=== PATIENT | female | born 1985 | race Caucasian/White ===

== ENCOUNTER 2016-11-23 09:06 | Day surgery (SDC) | payer BC ==
[~2016-11-23 09:06] MED LIST: Buffered Lidocaine 0.9% SYRIN* 5 ML/SYR SYRINGE INTRADERM ONE; Dexamethasone IV* 4 MG/ML 1 ML (4 MG) IV SLOW PU ONE; Famotidine IV* 10 MG/ML 2 ML (20 mg) IV ONE
[2016-11-23] MEDS ORDERED: Dexamethasone IV* 4 MG/ML 1 ML (4 MG) ONE (09:08)
[2016-11-23] MEDS ORDERED: Buffered Lidocaine 0.9% SYRIN* 5 ML/SYR SYRINGE ONE (09:08)
[2016-11-23] MEDS ORDERED: Famotidine IV* 10 MG/ML 2 ML (20 mg) ONE (09:08)
[2016-11-23] MEDS ORDERED: Bacitracin OINTMENT* 1 TUBE ONE (10:47)
[2016-11-23] MEDS ORDERED: Lidocaine 1% MPF wEPI 200,000* 30 ML SDV ONE (10:47)
[2016-11-23] MEDS ORDERED: Oxymetazoline 0.05% NASAL SPR* 15 ML BTL ONE (10:47)
[2016-11-23] MEDS ORDERED: Lidocaine 4% TOPICAL* 50 ML TOP.SOLN ONE (10:47)
[2016-11-23] MEDS ORDERED: oxyCODONE/Acetamin 5/325 MG* TAB PO PRN (10:55)
[2016-11-23] MEDS ORDERED: PROCHLORPERAZINE INJ 5 MG/ML 2 ML VIAL IV PRN (10:55)
[2016-11-23] MEDS ORDERED: fentaNYL* 50 MCG/ML 2 ML VIAL (100 MCG VIAL) IV PRN (10:55)
[2016-11-23] MEDS ORDERED: HYDROcodone/ACETAMIN 5-325 MG* 1 TAB PO PRN (10:55)
[2016-11-23] MEDS ORDERED: Midazolam* 1 MG/ML 5 ML VIAL (5 MG) ONE (10:58)
[2016-11-23] MEDS ORDERED: fentaNYL* 50 MCG/ML 2 ML VIAL (100 MCG VIAL) ONE (10:58)
[2016-11-23] MEDS ORDERED: Mivacurium Chloride* 20 MG/10 ML VIAL IV ONE (10:59)
[2016-11-23] MEDS ORDERED: Propofol* 10 MG/ML 20 ML BTL IV PUSH ONE (11:05)
[2016-11-23] MEDS ORDERED: Lidocaine 2% PF * 5 ML VIAL ONE (11:05)
[2016-11-23] MEDS ORDERED: Ondansetron INJ* 2 MG/ML VIAL ONE (11:24)
[2016-11-23] MEDS ORDERED: Ibuprofen TAB* 400 MG ONE (12:58)
[2016-11-23 13:01] VITALS: BP 137/88
--- NOTE | 2016-11-23 23:13 | OP ---
DATE OF OPERATION: 11/23/16 - [facility] DATE OF : 81 SURGEON: Denver Angulo MD ANESTHESIOLOGIST: Joanna Castro MD ANESTHESIA: General endotracheal anesthesia. PRE-OP DIAGNOSIS: Chronic maxillary sinusitis. POST-OP DIAGNOSIS: Chronic maxillary sinusitis. OPERATIVE PROCEDURE: Bilateral endoscopic sinus surgery with maxillary antrostomies with debridement under general endotracheal anesthesia. COMPLICATIONS: None. DISPOSITION: Good. SPECIMEN: Left and right sinus contents. ESTIMATED BLOOD LOSS: Minimal. DESCRIPTION OF PROCEDURE: The patient was taken to the operating room, placed in the supine position on the operating room table, general anesthesia induced and she was orotracheally intubated, turned and draped for the surgery and her nose was packed bilaterally with cottonoids impregnated with oxymetazoline and 4 % lidocaine. After several minutes this was removed and using the endoscopes the procedure was done similarly bilaterally. The root of the middle turbinate and uncinate process were injected with 1% lidocaine with 1:100,000 epinephrine. The middle turbinates was medialized. 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 On the right, she had an accessory ostium that I saw once the endoscopy was performed. The curved seeker was used to find the natural ostium of her maxillary sinuses. The backbiter was used to cut inferiorly on the uncinate process, this was then grasped and removed with a 45- degree up-biting Blakesley. The tissue was debrided at the ostium to connect the accessory with the natural ostium on the right side and to widen the ostium on the left side. A Stammberger Sinus-Foam was placed bilaterally. The patient tolerated this procedure well with no complications, and transferred to the recovery room in stable condition. [id number]/[facility] #: [id number] [facility], [place]
== END 2016-11-23 13:51 | disposition home or self-care (01) ==
LOC: OR 09:06
PROVIDERS: ATTEND Otolaryngology
DX: J32.0 Chronic maxillary sinusitis (principal); J45.909 Unspecified asthma, uncomplicated
CPT/HCPCS: 81025; A9270-GY; J1100; J2001; J2250; J2405; J2704; J3010

== ENCOUNTER 2017-04-29 13:43 | Emergency (ER) | payer BC ==
[2017-04-29 14:05] VITALS: BP 131/83
--- NOTE | 2017-04-29 14:44 | UC ---
Lower Extremity/Ankle HPI - HPI Summary HPI Summary: 31 female presents with right foot pain that began last night after stepping on something in her kids room. States it did bleed/puncture/pinch whatever it was. unable to find what it was that she stepped on. states it is painful now to touch and walk on. Also states it is red. No other complaints, no meds and no PMHx. - History of Current Complaint Chief Complaint: UCLowerExtremity Stated Complaint: RIGHT FOOT Time Seen by Provider: 04/29/17 14:31 Hx Obtained From: Patient Hx Last Menstrual Period: 04/09/17 ?: No Onset/Duration: Sudden Onset Severity Initially: Moderate Severity Currently: Moderate Pain Intensity: 8 Pain Scale Used: 0-10 Numeric Aggravating Factor(s): Standing, Ambulation, Other - touch Able to Bear Weight: Yes - with pain Legs: 1 - pain, erythema and abrasion - Allergies/Home Medications Allergies/Adverse Reactions: Allergies Allergy/AdvReac Type Severity Reaction Status Date / Time No Known Allergies Allergy Verified 04/29/17 13:57 PMH/Surg Hx/FS Hx/Imm Hx - Additional Past Medical History Additional PMH: Denies DM HTN, no PMHx - Surgical History Surgical History: Yes Surgery Procedure, Year, and Place: x4. T&A. hiatal hernia repair - Family History Known Family History: Positive: Other - CHRONIC SINUS INFECTION - Social History Alcohol Use: None Substance Use Type: None Smoking Status (MU): Never Smoked Tobacco - Immunization History Most Recent Tetanus Shot: unknown Vaccination Up to Date: Yes Review of Systems Constitutional: Negative Skin: Other - redness, pain, abrasion right bottom foot Respiratory: Negative Cardiovascular: Negative Musculoskeletal: Myalgia All Other Systems Reviewed And Are Negative: Yes Physical Exam Triage Information Reviewed: Yes Appearance: Well-Appearing, Well-Nourished, Pain Distress - with light touch or walking on right foot, moderate Vital Signs: Initial Vital Signs Temp 98.7 F 04/29/17 13:58 Pulse 87 04/29/17 13:58 Resp 18 04/29/17 13:58 BP 131/83 04/29/17 13:58 Pulse Ox 98 04/29/17 13:58 Vital Signs Reviewed: Yes Eyes: Positive: Conjunctiva Clear Respiratory Exam: Normal Cardiovascular: Positive: RRR, No Murmur, Pulses Normal - 2+ pedal, Brisk Capillary Refill Musculoskeletal: Positive: Strength Intact, ROM Intact, No Edema Neurological: Positive: Alert Skin: Positive: Other - erythema and small abrasion noted to right plantar foot at distal first metatarsal pad, "ball of foot" tender to touch, erythema circular surrounding area and appromxaitely 3cm width. No FB easily visualized Procedures - Procedure Summary Procedure Summary: FB removal bottom of right foot: area was sterilized with betadine and sterile precautions were used for entire procedure. lidocaine 2% was used to anesthetize the area. Small 1cm superficial incision was made using 11 blade scalpel. 1mm glass FB was removed without complication. Patient tolerated procedure well. wound was irrigated and soaked in hibbacleanse. Lower Extremity Course/Dx - Course Course Of Treatment: xray obtained to rule out FB although unknown object was stepped on. Unable to visualize obvious FB on physical exam however did feel a slight raised area. xray showed a 1 mm radiopaque object. FB was removed with procedure without complication. 1mm glass object was removed. foot was soaked in hibba cleanse and dressing applied. encouraged warm soaks, ibuprofen and triple antibiotic ointment. aware of worsening signs and symptoms. RICE. no other concerns at this time. follow up with pcp. - Differential Dx/Diagnosis Differential Diagnosis/HQI/PQRI: Foreign Body, Infection, Sprain, Other - abrasion/puncture wound Provider Diagnoses: foreign body right foot Discharge - Discharge Plan Condition: Good Disposition: HOME Patient Education Materials: Soft Tissue Foreign Body (ED) Referrals: Helio Goddard DO [Primary Care Provider] - Additional Instructions: continue warm soaks multiple times daily until wound is healed. keep clean and dry. recommend triple antibiotic ointment and dressing. any new signs or symptoms please seek medical attention. found up with pcp.
--- NOTE | 2017-04-29 15:15 | RAD ---
Indication: Assess for foreign body at the ball of the RIGHT foot/first metatarsal region. Comparison: No relevant prior exams available on the [facility] PACS for comparison. Technique: AP, lateral, and oblique views RIGHT foot. REPORT AND IMPRESSION: Negative for fracture or malalignment. 1 mm maximum dimension subtle radiopaque foreign body evident within the superficial soft tissues along the plantar aspect of the foot at level of the interspace between the distal metaphyses of the first and second metatarsals. Associated plantar soft tissue swelling. [place] images saved on the [facility] PACS.
[2017-04-29] MEDS ORDERED: Lidocaine 2% PF * 5 ML VIAL INJ ONE (15:51)
[2017-04-29] MEDS ORDERED: Tetan/Diph/Pertus SYR(Tdap)* 0.5 ML SYR(BOOSTRIX) use SYR IM ONE (15:57)
== END 2017-04-29 16:45 | disposition home or self-care (01) ==
LOC: UCCORT 13:43
DX: S91.341A Puncture wound with foreign body, right foot, initial encounter (principal); W22.8XXA Striking against or struck by other objects, initial encounter; Y93.9 Activity, unspecified; Y92.003 Bedroom of unspecified non-institutional (private) residence as the place of occurrence of the external cause; Z23 Encounter for immunization
CPT/HCPCS: 10120; 90715; 96372; 99212; G0463

== ENCOUNTER 2017-08-18 14:44 | Emergency (ER) | payer BC ==
[2017-08-18] MEDS ORDERED: methylPREDNISolone 125 MG* 2 ML VIAL IM ONE (15:40)
[2017-08-18] MEDS ORDERED: Albuterol/Ipratropium NEB.SOL* Albuterol 2.5 MG/Ipratropium 0.5 MG 3 ML INH ONE (15:40)
--- NOTE | 2017-08-18 15:49 | UC ---
Respiratory Complaint HPI - HPI Summary HPI Summary: Cough x 3 days with worsening SOB/ wheezing, chills, fevers and frontal sinus headache - History of Current Complaint Chief Complaint: UCRespiratory Stated Complaint: DIZZINESS,CHEST CONGESTION/PAIN Time Seen by Provider: 08/18/17 15:08 Hx Obtained From: Patient Hx Last Menstrual Period: 08/09/17 ?: No Onset/Duration: Sudden Onset, Lasting Days, Worse Since - today Severity Initially: Mild Severity Currently: Severe Pain Intensity: 10 Character: Cough: Productive Aggravating Factors: Deep Breaths, Recumbent Position Alleviating Factors: Nothing Associated Signs And Symptoms: Positive: Dyspnea, Fever, URI, Nasal Congestion, Sinus Discomfort Related History: Seasonal Allergies - Allergies/Home Medications Allergies/Adverse Reactions: Allergies Allergy/AdvReac Type Severity Reaction Status Date / Time No Known Allergies Allergy Verified 08/18/17 14:49 Home Medications: Home Medications Levocetirizine Dihydrochloride [Xyzal] 5 mg PO DAILY 08/18/17 [History Confirmed 08/18/17] PMH/Surg Hx/FS Hx/Imm Hx Respiratory History: Asthma Psychological History: Anxiety - Surgical History Surgical History: Yes Surgery Procedure, Year, and Place: x4. T&A. hiatal hernia repair. TUBAL LIGATION. SINUS SURGERY - Family History Known Family History: Positive: Cardiac Disease, Hypertension, Diabetes, Other - CHRONIC SINUS INFECTION - Social History Occupation: Employed Full-time Lives: With Family Alcohol Use: None Substance Use Type: None Smoking Status (MU): Never Smoked Tobacco Have You Smoked in the Last Year: No - Immunization History Most Recent Tetanus Shot: unknown Vaccination Up to Date: Yes Review of Systems Constitutional: Fever, Fatigue ENT: Sore Throat, Nasal Discharge, Sinus Pain/Tenderness Respiratory: Shortness Of Breath, Cough Cardiovascular: Palpitations Musculoskeletal: Myalgia Is Patient Immunocompromised?: No All Other Systems Reviewed And Are Negative: Yes Physical Exam Triage Information Reviewed: Yes Appearance: No Pain Distress, Ill-Appearing, Obese Vital Signs: Initial Vital Signs Temp 101.1 F 08/18/17 14:51 Pulse 115 08/18/17 14:51 Resp 18 08/18/17 14:51 BP 147/89 08/18/17 14:51 Pulse Ox 98 08/18/17 14:51 Vital Signs Reviewed: Yes Eyes: Positive: Conjunctiva Inflamed ENT: Positive: Pharynx normal, Nasal congestion, TMs normal Neck exam: Normal Respiratory: Positive: Wheezing - diffuse mild expiratory wheezing.. Negative: Crackles Cardiovascular: Positive: RRR, No Murmur, Tachycardia Abdomen Description: Positive: Nontender, No Organomegaly, Soft Musculoskeletal Exam: Normal Neurological Exam: Normal Psychological Exam: Normal Skin Exam: Normal UC Diagnostic Evaluation - Laboratory Pertinent Lab Values Are: WNL - Flu negative O2 Sat by Pulse Oximetry: 98 - Radiology Xray Interpretation: No Acute Changes Radiology Interpretation Completed By: Radiologist Re-Evaluation - Re-Evaluation First Eval Re-Evaluation Time: 16:39 Change: Improved - Looking better. Respiratory Course/Dx - Differential Dx/Diagnosis Differential Diagnosis/HQI/PQRI: Asthma, Lower Resp Infection, Sinusitis Provider Diagnoses: Acute URI. Acute sinusitis. Asthma with acute exacerbation Discharge - Sign-Out/Discharge Documenting (check all that apply): Discharge/Admit/Transfer - Discharge Plan Condition: Fair Disposition: HOME Prescriptions: Amoxicillin/Clavulanate TAB* [Augmentin TAB 875*] 875 mg PO BID #20 tab predniSONE [Prednisone 20 MG TAB] 20 mg PO DAILY #18 tablet Patient Education Materials: Upper Respiratory Infection (ED), Sinusitis (ED), Amoxicillin/Clavulanate Potassium (By mouth), Asthma (ED), Methylprednisolone ( By injection) Referrals: Helio Goddard DO [Primary Care Provider] - - Billing Disposition and Condition Condition: FAIR Disposition: Home
--- NOTE | 2017-08-18 16:08 | RAD ---
Indication: Wheezing, fever. 2 views of the chest including dual energy PA views demonstrates no mediastinal shift. Heart is of normal size and configuration. Lung erazo are clear. IMPRESSION: No active cardiopulmonary disease is noted.
[2017-08-18] MEDS ORDERED: Ibuprofen TAB* 600 MG PO ONE (16:14)
[2017-08-18] MEDS ORDERED: Amoxicillin/Clavulanate TAB* 875 MG PO ONE (16:33)
[2017-08-18 16:41] VITALS: BP 130/76
== END 2017-08-18 17:22 | disposition home or self-care (01) ==
LOC: UCCORT 14:44
DX: J06.9 Acute upper respiratory infection, unspecified (principal); J01.90 Acute sinusitis, unspecified; J45.901 Unspecified asthma with (acute) exacerbation
CPT/HCPCS: 71046; 93005; 96372; 99213; A9270-GY; G0463; J2930

== ENCOUNTER 2018-05-12 17:50 | Emergency (ER) | payer BC ==
[2018-05-12 18:42] VITALS: BP 131/86
[2018-05-12] MEDS ORDERED: Acetaminophen TAB* 325 MG PO ONE (18:52)
--- NOTE | 2018-05-12 18:53 | UC ---
FLU HPI - HPI Summary HPI Summary: Flulike symptoms starting yesterday. Patient thinks she had a fever, body aches , headache. She has been on antibiotics and still has 2 doses left for prophylactic treatment as a result of a left upper molar tooth extraction last week. - History of Current Complaint Chief Complaint: UCRespiratory Stated Complaint: SINUS HEADACHE (HAD TOOTH PULLED) Time Seen by Provider: 05/12/18 18:47 Hx Obtained From: Patient Hx Last Menstrual Period: 05/12/18 ?: No Onset/Duration: Gradual Onset Severity Currently: Mild Severity Initially: Moderate Pain Intensity: 8 Associated Signs & Symptoms: Positive: Fever, Myalgia, Nasal Congestion, Headache - Allergy/Home Medications Allergies/Adverse Reactions: Allergies Allergy/AdvReac Type Severity Reaction Status Date / Time No Known Allergies Allergy Verified 05/12/18 18:37 Home Medications: Home Medications Cephalexin CAP* [Keflex 500 CAP*] 1 tab TID 05/12/18 [History Confirmed 05/12/18 ] PMH/Surg Hx/FS Hx/Imm Hx Previously Healthy: Yes - Surgical History Surgical History: Yes Surgery Procedure, Year, and Place: x4. T&A. hiatal hernia repair. TUBAL LIGATION. SINUS SURGERY - Family History Known Family History: Positive: Cardiac Disease, Hypertension, Diabetes, Other - CHRONIC SINUS INFECTION - Social History Alcohol Use: None Substance Use Type: None Smoking Status (MU): Never Smoked Tobacco Have You Smoked in the Last Year: No - Immunization History Most Recent Tetanus Shot: unknown Vaccination Up to Date: Yes Review of Systems All Other Systems Reviewed And Are Negative: Yes Constitutional: Positive: Fever, Chills ENT: Positive: Nasal Discharge, Sinus Congestion Musculoskeletal: Positive: Myalgia Neurological: Positive: Headache Is Patient Immunocompromised?: No Physical Exam Triage Information Reviewed: Yes Appearance: No Pain Distress, Well-Nourished, Ill-Appearing Vital Signs: Initial Vital Signs Temp 98.4 F 05/12/18 18:38 Pulse 87 05/12/18 18:38 Resp 16 05/12/18 18:38 BP 131/86 05/12/18 18:38 Pulse Ox 100 05/12/18 18:38 Vital Signs Reviewed: Yes Eye Exam: Normal ENT: Positive: Hearing grossly normal, Pharynx normal, Pharyngeal erythema, Nasal congestion, Nasal drainage, TMs normal, Uvula midline. Negative: Tonsillar swelling, Tonsillar exudate, Trismus, Muffled voice, Hoarse voice Dental: Positive: Other: - Left upper first molar has been extracted, gumline is mildly erythematous but with no exudate or drainage. I'll tenderness on palpation. Neck exam: Normal Neck: Positive: Supple, Nontender, No Lymphadenopathy Respiratory Exam: Normal Cardiovascular Exam: Normal Musculoskeletal Exam: Normal Neurological Exam: Normal Psychological Exam: Normal Skin Exam: Normal Flu Course/Dx - Course Course Of Treatment: Patient has been fairly comfortable here. Rapid strep and flu tests were negative. She is to go home increase fluids, rest take Tylenol and alternate with Motrin for headache although I did advise her if she her headache becomes worse that she's ever had or worsen any way she can go to the emergency room. The patient is agreeable to this plan of action. - Differential Dx/Diagnosis Provider Diagnosis: Flu-like symptoms Discharge - Sign-Out/Discharge Documenting (check all that apply): Patient Departure All imaging exams completed and their final reports reviewed: No Studies - Discharge Plan Condition: Fair Disposition: HOME Patient Education Materials: Upper Respiratory Infection (DC) Forms: *Work Release Referrals: Helio Goddard DO [Primary Care Provider] - Additional Instructions: Rest, increase fluids, may take Tylenol every 4 hours and Motrin every 8 hours. Definite follow-up with your primary care provider if no improvement in 3-4 days. - Billing Disposition and Condition Condition: FAIR Disposition: Home
[2018-05-12 19:25] LABS: Influenza A Molecular NEGATIVE (Negative); Influenza B Molecular NEGATIVE (Negative)
== END 2018-05-12 19:36 | disposition home or self-care (01) ==
LOC: UCCORT 17:50
DX: R51 Headache (principal); R50.9 Fever, unspecified; M79.10 Myalgia, unspecified site
CPT/HCPCS: 87651; 99212; A9270-GY; G0463

== ENCOUNTER → 2018-07-10 06:17 | Day surgery (SDC) | payer BC ==
[~2018-07-10 06:17] MED LIST changes: -Buffered Lidocaine 0.9% SYRIN* 5 ML/SYR SYRINGE INTRADERM ONE; +Buffered Lidocaine 1% SYRIN* 1 ML/SYRINGE INTRADERM ONE; +Bupivacaine 0.25% SDV PF* 10 ML VIAL INJ ONE; +Dexamethasone IV* 4 MG/ML 1 ML (4 MG) ONE; +DiMENhydriNATE IV* 50 MG/ML VIAL IV PUSH PRN; +Famotidine IV* 10 MG/ML 2 ML (20 mg) ONE; +HYDROcodone/ACETAMIN 5-325 MG* 1 TAB ONE; +Ketorolac INJ* 30 MG/ML 1 ML VIAL IV PRN; +Ketorolac INJ* 30 MG/ML 1 ML VIAL ONE; +Lactated Ringers 1000 ML Bag* 1,000 ML IV SCH; +Lidocaine 2% PF * 5 ML VIAL ONE; +Midazolam* 1 MG/ML 2 ML VIAL (2 MG) ONE; +Naloxone* 0.4 MG/ML 1 ML VIAL IV PRN; +Ondansetron INJ* 2 MG/ML VIAL ONE; +Propofol* 10 MG/ML 20 ML BTL ONE; +ceFAZolin 2 GM PREMIX in ORs 2 GM/50 ML BAG IVPB ONE; +fentaNYL* 50 MCG/ML 2 ML VIAL (100 MCG VIAL) IV PRN; +fentaNYL* 50 MCG/ML 2 ML VIAL (100 MCG VIAL) ONE
--- NOTE | 2018-07-10 10:31 | OP ---
OPERATIVE REPORT: DATE OF OPERATION: 07/10/18 DATE OF : 81 SURGEON: Harsh Adame MD MECHANISM INSPECTOR: POLO Lemos An fast food sales assistant was needed for the procedure to aid in retraction and positioning of the arm. ANESTHESIOLOGIST: Dr. Barajas. ANESTHESIA: General. PRE-OP DIAGNOSES: 1. Left dorsal wrist ganglion cyst. 2. Left carpal tunnel syndrome. POST-OP DIAGNOSES: 1. Left dorsal wrist ganglion cyst. 2. Left carpal tunnel syndrome. OPERATIVE PROCEDURE: 1. Left endoscopic carpal tunnel release. 2. Left dorsal wrist ganglion cyst excision. INDICATIONS: Hattie has the aforementioned condition, quite symptomatic. Cyst is quite large. We t alked about treatment options. She wanted to proceed. She understands the risks associated with the procedures. ESTIMATED BLOOD LOSS: 2 mL. COMPLICATIONS: None. FINDINGS: See above and below. DESCRIPTION OF PROCEDURE: Hattie was seen in the preoperative holding area. The correct side, site, and procedure were identified. We came back to the operating room. The arm was prepped and draped in the usual fashion and a time-out was performed. The arm was exsanguinated with the Esmarch and th e tourniquet was inflated to 225 mmHg. I began by making a 2 cm transverse incision over the dorsal wrist ganglion cyst. Dissection was carried down and a marginal excision was performed. The cyst wa s emanating off the dorsal scapholunate joint and the EPL second and fourth dorsal compartment tendon s were all protected as I performed a marginal excision taking it right back to the dorsal wrist caps ule where it was amputated. I then cauterized the dorsal wrist capsule where it had come off the kym nt. Everything was looking really good at this point. We irrigated out the wound. The skin was leonel sed with 4-0 Monocryl and Steri-Strip. We then supinated the arm and I made a 1 cm transverse incision just proximal to the wrist flexion cr ease starting at the ulnar aspect of the palmaris longus tendon. Dissection was carried down and the distal antebrachial fascia was split transversely bluntly. Two-prong skin hook was placed. I used the synovial stripper followed by the dilators and then a Q-tip to dry out the canal. I then placed the MicroAire endoscopic carpal tunnel system down into the carpal tunnel. Once I had the blade in th e correct position and there was no interposed soft tissue between the blade and the ligament, I pull ed the trigger to elevate the blade. The ligament was then released from distal to proximal. Once I had released the entirety of the ligament, I placed a Mariangel retractor to retract the proximal fat out of the way and I confirmed the release by placing the camera back into the tunnel. At this point, e verything was looking very good. I released the distal antebrachial fascia proximally with a tenotom y scissors. Wound was irrigated out and closed with 4-0 Monocryl suture. Wrist was placed in a cock -up plaster wrist splint and she was taken to the recovery room in stable condition. [id number]/[facility] #: [id number]
[2018-07-10 10:47] VITALS: BP 128/80
== END | disposition home or self-care (01) ==
LOC: EDSEX 06:17 → OREAST 06:17
PROVIDERS: ATTEND Orthopaedic Surgery Hand Surgery
DX: G56.02 Carpal tunnel syndrome, left upper limb (principal); M67.432 Ganglion, left wrist; Z68.37 Body mass index [BMI] 37.0-37.9, adult; M19.90 Unspecified osteoarthritis, unspecified site; F41.8 Other specified anxiety disorders; J45.909 Unspecified asthma, uncomplicated
CPT/HCPCS: 81025; 88304; J0690; J1100; J1885; J2250; J2405; J2704; J3010; J3490

== ENCOUNTER 2019-02-25 12:05 | Emergency (ER) | payer BC ==
[2019-02-25 13:04] VITALS: BP 124/85
--- NOTE | 2019-02-25 13:32 | UC ---
Throat Pain/Nasal Art HPI - HPI Summary HPI Summary: Pt presents with c/o nasal congestion, sinus pressure and pain, fatigue X 3 weeks. Pt has not taken any OTC medications to help with symptoms, states "that she doesn't like to medicine". - History of Current Complaint Chief Complaint: UCGeneralIllness Stated Complaint: SINUS,EARS Time Seen by Provider: 02/25/19 12:51 Hx Obtained From: Patient Hx Last Menstrual Period: 02/18/19 ?: No Onset/Duration: Gradual Onset, Lasting Weeks, Still Present, Worse Since - onset Severity: Moderate Pain Intensity: 7 Cough: Sputum Appears - yellow/ green Associated Signs & Symptoms: Positive: Sinus Discomfort - Epiglottits Risk Factors Epiglottis Risk Factors: Negative - Allergies/Home Medications Allergies/Adverse Reactions: Allergies Allergy/AdvReac Type Severity Reaction Status Date / Time No Known Allergies Allergy Verified 02/25/19 13:00 Home Medications: Home Medications Acetaminophen [Tylenol Extra Strength] 1,000 mg PO ONCE 02/25/19 [History Confirmed 02/25/19] PMH/Surg Hx/FS Hx/Imm Hx Previously Healthy: Yes - Surgical History Surgical History: Yes Surgery Procedure, Year, and Place: x4. T&A. hiatal hernia repair. TUBAL LIGATION. SINUS SURGERY. L carpal tunnel. L ganglion cyst removal - Family History Known Family History: Positive: Cardiac Disease, Hypertension, Diabetes, Other - CHRONIC SINUS INFECTION - Social History Occupation: Employed Full-time Lives: With Family Alcohol Use: None Substance Use Type: None Smoking Status (MU): Never Smoked Tobacco Have You Smoked in the Last Year: No - Immunization History Most Recent Tetanus Shot: unknown Vaccination Up to Date: Yes Review of Systems All Other Systems Reviewed And Are Negative: Yes Constitutional: Positive: Chills, Fatigue Skin: Positive: Negative Eyes: Positive: Negative ENT: Positive: Ear Ache, Sinus Congestion, Sinus Pain/Tenderness Respiratory: Positive: Cough Cardiovascular: Positive: Negative Gastrointestinal: Positive: Negative Genitourinary: Positive: Negative Motor: Positive: Negative Neurovascular: Positive: Negative Musculoskeletal: Positive: Myalgia Neurological: Positive: Headache Psychological: Positive: Negative Is Patient Immunocompromised?: No Physical Exam Triage Information Reviewed: Yes Appearance: Ill-Appearing Vital Signs: Initial Vital Signs Temp 97.5 F 02/25/19 13:01 Pulse 102 02/25/19 13:01 Resp 18 02/25/19 13:01 BP 124/85 02/25/19 13:01 Pulse Ox 97 02/25/19 13:01 Vital Signs Reviewed: Yes Eye Exam: Normal ENT: Positive: Nasal congestion, Sinus tenderness Dental Exam: Normal Neck exam: Normal Respiratory Exam: Normal Cardiovascular Exam: Normal Musculoskeletal Exam: Normal Neurological Exam: Normal Psychological Exam: Normal Skin Exam: Normal Throat Pain/Nasal Course/Dx - Differential Dx/Diagnosis Differential Diagnosis/HQI/PQRI: Otitis Media, Sinusitis, URI Provider Diagnosis: Sinusitis, Ear ache Discharge ED - Sign-Out/Discharge Documenting (check all that apply): Patient Departure All imaging exams completed and their final reports reviewed: No Studies - Discharge Plan Condition: Stable Disposition: HOME Prescriptions: Amoxicillin PO (*) [Amoxicillin 875 MG (*)] 875 mg PO Q12H #20 tab Guaifenesin/Pseudoephedrne HCl [Mucinex D ER 600-60 mg Tablet] 1 each PO Q12H # 14 tab.er.12h Patient Education Materials: Sinusitis (ED) Referrals: Helio Goddard DO [Primary Care Provider] - If Needed - Billing Disposition and Condition Condition: STABLE Disposition: Home
== END 2019-02-25 13:53 | disposition home or self-care (01) ==
LOC: EDSEX → UCCORT 12:05
DX: J32.9 Chronic sinusitis, unspecified (principal); H92.03 Otalgia, bilateral
CPT/HCPCS: 99212; G0463